=== PATIENT | female | born 1965 | race American Indian/Alaskan Native ===

== ENCOUNTER 2018-11-14 09:10 | Outpatient (CLI) | payer OTHER ==
--- NOTE | 2018-11-14 10:07 | Ultrasound Report ---
RENAL ULTRASOUND: 11/14/18 CLINICAL: A recent CT reportedly showed an abnormality in the kidneys. FINDINGS: High resolution ultrasound demonstrated normal nondilated renal collecting systems and ureters. Normal renal contours, size and echogenicity. No renal mass, cyst or calculus. The right kidney measures 9.0 x 2.9 x 6.1-cm. The renal parenchyma measures 1.5-cm in thickness. The left kidney measures 10.6 x 6.3 x 5.8-cm. The renal parenchyma measures 1.6-cm in thickness. A normal normal urinary bladder with moderate distention.Bilateral urine jets were observed in the urinary bladder. IMPRESSION: Normal kidneys with no hydronephrosis.
== END 2018-11-14 09:11 | disposition home or self-care (01) ==
LOC: SPVWC 09:10
PROVIDERS: ATTEND Internal Medicine
DX: Z87.448 Personal history of other diseases of urinary system (principal)
CPT/HCPCS: 76770